=== PATIENT | male | born 1930 | race African-American/Black ===

== ENCOUNTER 2017-03-08 14:12 | Inpatient (IN) | payer MEDICARE ==
[~2017-03-08] VITALS: Ht 165.1 cm; Wt 57.0 kg
[2017-03-08 00:50] VITALS: BP 145/74
[~2017-03-08 14:12] MED LIST: ALBUTEROL SUL0.083 % IN; AMLODIPINE2.5 MG PO; ASA LOW DOSE81 MG OR; ATIVAN2 MG/M1 IM; ATROPINE 1% OPTH5 ML OS; ATROVENT HFA17 MCG IN; AUGMENTIN500TAB PO; B COMPLE1 OR; B COMPLE2 PO; BRIMONIDINE0.15 % OU; CIPRO500 MG OR; COSOPT1 ML OU; COUMADIN2 MG PO; COUMADIN2.5 MG PO; COUMADIN7.5 MG OR; DAPSONE100 MG OR; DAPSONE100 MG PO; DIPHENHYDRAM50 M2 PO; DULCOLAX10 MG RE; DUONEB IN; EFFEXOR37.5 MG PO; FOLIC ACID1 MG PO; HUMULIN R1 M1 SC; INSULIN LISPRO SC; INVANZ1 GM IV; IRON325 M1 PO; LANTISEPTI2 EX; LANTUS SC; LANTUS100 MG/ML SC; LEVETIRACETAM500 MG PO; LISINOPRIL20 MG PO; LORAZEPAM0.5 MG PO; LORTAB 1010 MG PO; MEROPENEM1 GM IJ; MEROPENEM1 GM IV; MILK OF MAG30 ML/UDC PO; MULTI VIT PO; NEURONTIN300 MG PO; NITRO-BID2.5 M1 PO; NORVASC2.5 MG PO; NOVOLIN R U-1001 ML SC; OLANZAPINE5 MG PO; OMEPRAZOLE20 MG PO; PERFOROMIST20 MCG IN; PRILOSEC20 MG/CAP PO; PRINIVIL20 MG OR; PRINIVIL5 MG OR; PROAIR HFA IN; SENNOSIDES8.6 M1 PO; SEPTRA PO; SEROQUEL100 MG PO; SEROQUEL25 MG PO; SIMBRINZA1 SUS OU; SPIRIVA HANDIHALER IN; SUSTIVA50 MG PO; SUSTIVA600 MG OR; SUSTIVA600 MG PO; THIAMINE HCL100 MG PO; TRUVADA OR; TRUVADA PO; TYLENOL325 MG PO; VITAMIN B-12500 MCG PO; WARFARIN1 MG PO; WARFARIN2.5 MG; WARFARIN2.5 MG OR; WARFARIN2.5 MG PO; XALATAN 0.005%2.5 ML OU; ZITHROMAX500 MG PO; ZYPREXA2.5 MG PO
[2017-03-08 14:53] VITALS: BP 119/63
[2017-03-08 20:02] VITALS: BP 162/84
[2017-03-08 21:23] LABS: CALCIUM 8.5 mg/dL (8.4-10.2); CREATININE 1.5 mg/dL (0.7-1.3); HEMATOCRIT 29.1 % (39.0-50.0); HEMOGLOBIN 9.3 g/dl (14.0-18.0); IMMATURE GRANULOCYTES 0.3 % (0.0-1.0); MEAN CELL VOLUME 97.7 fL CALC (80.0-100.0); MEAN CORPUSCULAR HGB 31.2 pG CALC (26.0-32.0); NEUT# 3.85 thou/uL (1.82-7.42); RED BLOOD COUNT 2.98 mill/uL (4.70-6.10); RED CELL DISTRI WIDTH 13.5 % (11.5-15.5)
[2017-03-08 21:28] LABS: POTASSIUM 5.3 mmol/l (3.5-5.1)
[2017-03-09 03:21] VITALS: BP 156/82
[2017-03-09 08:44] VITALS: BP 148/71
[2017-03-09 10:24] LABS: HEMATOCRIT 27.2 % (39.0-50.0); HEMOGLOBIN 8.6 g/dl (14.0-18.0); IMMATURE GRANULOCYTES 0.5 % (0.0-1.0); MEAN CELL VOLUME 97.5 fL CALC (80.0-100.0); MEAN CORPUSCULAR HGB 30.8 pG CALC (26.0-32.0); MEAN CORPUSCULAR HGB CONC 31.6 g/L CALC (32.0-36.0); NEUT# 3.28 thou/uL (1.82-7.42); RED BLOOD COUNT 2.79 mill/uL (4.70-6.10); RED CELL DISTRI WIDTH 13.4 % (11.5-15.5)
[2017-03-09 10:48] LABS: ALBUMIN 3.3 g/dL (3.2-5.0); ALKALINE PHOSPHATASE 154 u/l (38-126); BILIRUBIN, TOTAL 0.2 mg/dL (0.0-1.4); BUN 21 mg/dL (8-23); BUN/CREATININE RATIO 16 (12-20 (CALC)); CALCIUM 8.4 mg/dL (8.4-10.2); CARBON DIOXIDE 23 mmol/l (22-30); CHLORIDE 107 mmol/l (95-108); CREATININE 1.3 mg/dL (0.7-1.3); GFR 53 ML/MIN (>=60 (CALC)); GFR FOR AFR.AMER. > 60 ML/MIN (>=60 (CALC)); GLUCOSE 235 mg/dL (82-115); SGOT/AST 23 u/l (19-48); SGPT/ALT 35 u/l (11-66); SODIUM 140 mmol/l (137-146); TOTAL PROTEIN 7.8 g/dL (6.3-8.2)
[2017-03-09 10:51] LABS: ANION GAP 15 (6-22 (CALC)); POTASSIUM 5.4 mmol/l (3.5-5.1)
[2017-03-09 11:11] VITALS: BP 156/83
[2017-03-09 15:11] VITALS: BP 136/70
[2017-03-09 19:54] VITALS: BP 133/78
[2017-03-09 23:19] VITALS: BP 135/71
[2017-03-10 04:01] VITALS: BP 136/62
[2017-03-10 05:19] LABS: HEMATOCRIT 26.8 % (39.0-50.0); HEMOGLOBIN 8.6 g/dl (14.0-18.0); IMMATURE GRANULOCYTES 0.2 % (0.0-1.0); MEAN CELL VOLUME 96.8 fL CALC (80.0-100.0); MEAN CORPUSCULAR HGB CONC 32.1 g/L CALC (32.0-36.0); NEUT# 3.06 thou/uL (1.82-7.42); RED BLOOD COUNT 2.77 mill/uL (4.70-6.10); RED CELL DISTRI WIDTH 13.2 % (11.5-15.5)
[2017-03-10 05:42] LABS: ALBUMIN 3.1 g/dL (3.2-5.0); ALKALINE PHOSPHATASE 142 u/l (38-126); BILIRUBIN, TOTAL 0.2 mg/dL (0.0-1.4); BUN 20 mg/dL (8-23); BUN/CREATININE RATIO 15 (12-20 (CALC)); CALCIUM 8.2 mg/dL (8.4-10.2); CALCULATED LDLCHOLESTEROL 65 mg/dL (62-129 (CALC)); CARBON DIOXIDE 28 mmol/l (22-30); CHLORIDE 107 mmol/l (95-108); CREATININE 1.3 mg/dL (0.7-1.3); GFR 53 ML/MIN (>=60 (CALC)); GFR FOR AFR.AMER. > 60 ML/MIN (>=60 (CALC)); GLUCOSE 138 mg/dL (82-115); HDL CHOLESTEROL 36 mg/dL (>=40); SGOT/AST 27 u/l (19-48); SGPT/ALT 34 u/l (11-66); SODIUM 143 mmol/l (137-146); TOTAL CHOLESTEROL 131 mg/dl (0-199); TOTAL PROTEIN 7.4 g/dL (6.3-8.2); TOTAL TRIGLYCERIDES 149 mg/dl (30-149); VLDL CHOLESTROL 30 mg/dl (0-38 (CALC))
[2017-03-10 05:47] LABS: ANION GAP 14 (6-22 (CALC)); POTASSIUM 5.5 mmol/l (3.5-5.1)
[2017-03-10 09:28] VITALS: BP 176/89
[2017-03-10 11:11] VITALS: BP 158/86
[2017-03-10 15:25] VITALS: BP 154/81
[2017-03-10 19:35] VITALS: BP 120/70
[2017-03-11 00:40] VITALS: BP 157/80
[2017-03-11 05:00] VITALS: BP 130/84
[2017-03-11 05:23] LABS: HEMATOCRIT 27.6 % (39.0-50.0); HEMOGLOBIN 8.8 g/dl (14.0-18.0); IMMATURE GRANULOCYTES 0.6 % (0.0-1.0); MEAN CELL VOLUME 95.5 fL CALC (80.0-100.0); MEAN CORPUSCULAR HGB 30.4 pG CALC (26.0-32.0); MEAN CORPUSCULAR HGB CONC 31.9 g/L CALC (32.0-36.0); NEUT# 3.2 thou/uL (1.82-7.42); RED BLOOD COUNT 2.89 mill/uL (4.70-6.10)
[2017-03-11 05:47] LABS: CALCIUM 8.5 mg/dL (8.4-10.2); CREATININE 1.5 mg/dL (0.7-1.3)
[2017-03-11 05:56] LABS: POTASSIUM 5.2 mmol/l (3.5-5.1)
[2017-03-11 10:00] VITALS: BP 156/72
[2017-03-11 13:27] VITALS: BP 149/94
[2017-03-11 15:55] VITALS: BP 128/66
[2017-03-11 20:05] VITALS: BP 138/81
[2017-03-12 00:05] VITALS: BP 121/74
[2017-03-12 03:25] VITALS: BP 144/85
[2017-03-12] MEDS ORDERED: TRUVADA PO (09:21)
[2017-03-12] MEDS ORDERED: SUSTIVA600 MG PO (09:21)
[2017-03-12] MEDS ORDERED: ROCEPHIN 1 GM1 GM IM (09:23)
[2017-03-12 09:25] VITALS: BP 128/89
[2017-03-12 11:42] VITALS: BP 133/72
== END 2017-03-12 16:35 | DRG 190 ==
LOC: ENPENDDIS → MS2 14:12
PROVIDERS: ADMIT Internal Medicine Geriatric Medicine; ATTEND Internal Medicine Geriatric Medicine
DX: J44.0 Chronic obstructive pulmonary disease with (acute) lower respiratory infection (principal); J15.5 Pneumonia due to Escherichia coli; C79.9 Secondary malignant neoplasm of unspecified site; C80.1 Malignant (primary) neoplasm, unspecified; F03.90 Unspecified dementia, unspecified severity, without behavioral disturbance, psychotic disturbance, mood disturbance, and anxiety; E87.5 Hyperkalemia; E11.42 Type 2 diabetes mellitus with diabetic polyneuropathy; D63.8 Anemia in other chronic diseases classified elsewhere; I10 Essential (primary) hypertension; I25.10 Atherosclerotic heart disease of native coronary artery without angina pectoris; I48.91 Unspecified atrial fibrillation; H40.9 Unspecified glaucoma; H54.0 Blindness, both eyes; M19.90 Unspecified osteoarthritis, unspecified site; Z16.12 Extended spectrum beta lactamase (ESBL) resistance; Z21 Asymptomatic human immunodeficiency virus [HIV] infection status

== ENCOUNTER 2017-03-23 06:52 | Inpatient (IN) | payer MEDICARE ==
[~2017-03-23] VITALS: Ht 165.1 cm; Wt 60.0 kg
[~2017-03-23 06:52] MED LIST changes: +ROCEPHIN 1 GM1 GM IM
--- NOTE | 2017-03-23 06:52 | NUR ---
P TTO ROOM 10 VIA STRETCHER BY EMS. CALL LIGHT BEKAH FIERRO.
[2017-03-23 07:52] LABS: HEMATOCRIT 30.1 % (39.0-50.0); HEMOGLOBIN 9.6 g/dl (14.0-18.0); IMMATURE GRANULOCYTES 0.3 % (0.0-1.0); MEAN CORPUSCULAR HGB 31.6 pG CALC (26.0-32.0); MEAN CORPUSCULAR HGB CONC 31.9 g/L CALC (32.0-36.0); NEUT# 4.24 thou/uL (1.82-7.42); RED BLOOD COUNT 3.04 mill/uL (4.70-6.10); RED CELL DISTRI WIDTH 13.2 % (11.5-15.5)
[2017-03-23 08:07] LABS: ALBUMIN 3.6 g/dL (3.2-5.0); ALKALINE PHOSPHATASE 149 u/l (38-126); BILIRUBIN, TOTAL 0.3 mg/dL (0.0-1.4); BUN 29 mg/dL (8-23); BUN/CREATININE RATIO 19 (12-20 (CALC)); CALCIUM 8.6 mg/dL (8.4-10.2); CARBON DIOXIDE 27 mmol/l (22-30); CHLORIDE 108 mmol/l (95-108); CREATININE 1.5 mg/dL (0.7-1.3); GFR 45 ML/MIN (>=60 (CALC)); GFR FOR AFR.AMER. 54 ML/MIN (>=60 (CALC)); GLUCOSE 92 mg/dL (82-115); SGOT/AST 61 u/l (19-48); SGPT/ALT 33 u/l (11-66); SODIUM 144 mmol/l (137-146); TOTAL PROTEIN 8.9 g/dL (6.3-8.2)
--- NOTE | 2017-03-23 08:09 | NUR ---
PT RESTING ON STRETCHER WITH EYES CLOSED. PT RESPONDS TO VERBAL STIMULI. PT FOLLOWS COMMANDS. RESP EVEN AND UNLABORED. SKIN WARM AND DRY. CALL LIGHT WITHIN REACH. SR ON WASTE AND BATTING WASTE CHOPPER. PT VOICES NO COMPLAINTS OR CONCERNS.
[2017-03-23 08:11] LABS: INTERNATIONAL NORMALIZED RATIO 0.9 RATIO (0.7-1.3); PROTHROMBIN TIME 10.1 SECONDS (9.0-12.5)
[2017-03-23 08:18] LABS: MYOGLOBIN 62 ng/mL (0 - 121)
[2017-03-23 08:19] LABS: ANION GAP 15 (6-22 (CALC)); POTASSIUM 6.3 mmol/l (3.5-5.1)
[2017-03-23 08:58] LABS: URINE BILIRUBIN - DIPSTICK NEGATIVE (NEGATIVE); URINE BLOOD DIPSTICK NEGATIVE (NEGATIVE); URINE CLARITY CLEAR; URINE COLOR YELLOW; URINE GLUCOSE - DIPSTICK NEGATIVE (NEGATIVE); URINE KETONE NEGATIVE (NEGATIVE); URINE LEUK ESTERASE NEGATIVE (Negative); URINE NITRITE - DIPSTICK NEGATIVE (Negative); URINE PROTEIN - DIPSTICK NEGATIVE (NEG-TRACE); URINE UROBILINOGEN - DIPSTICK 0.2 E.U./dL (0.2)
--- NOTE | 2017-03-23 08:58 | NUR ---
SBAR PRINTED TO [id number] AT [id number].
--- NOTE | 2017-03-23 09:18 | NUR ---
PT SLEPING IN NO ACUTE DISTRESS, AWAKENS TO GENTLE TACTILE STIMULATION. NO VOICED CONCERNS AT THIS TIME. IVF BEGUN ORDERED, AWAITING ADMITTING ORDERS
[2017-03-23] MEDS ORDERED: DESCOVY 200-251 TAB PO (10:07)
[2017-03-23] MEDS ORDERED: GLIPIZIDE5 MG PO (10:11)
[2017-03-23] MEDS ORDERED: NITRO-DUR0.2 MG/HR TD (10:14)
[2017-03-23] MEDS ORDERED: AMLODIPINE BES2.5 MG PO (10:15)
[2017-03-23] MEDS ORDERED: (None)1 % OU (10:17)
[2017-03-23] MEDS ORDERED: XALATAN0.005 % OU (10:21)
[2017-03-23] MEDS ORDERED: [UNRECOGNIZED DRUG - OTHER] OS (10:25)
[2017-03-23] MEDS ORDERED: GABAPENTIN100 MG PO (10:26)
[2017-03-23] MEDS ORDERED: NOVOLIN R100 UNIT/M SC (10:32)
[2017-03-23] MEDS ORDERED: [UNRECOGNIZED DRUG - CODE] OS (10:33)
[2017-03-23] MEDS ORDERED: SYSTANE OU (10:34)
--- NOTE | 2017-03-23 10:36 | NUR ---
NO BRIDGE ORDERS PLACED OF YET. PT REMAINS IN STRETCHER IN ER AWAITING ROOM PLACEMENT.
--- NOTE | 2017-03-23 10:57 | NUR ---
PT REPORT GIVEN TO MED SURG
--- NOTE | 2017-03-23 11:00 | NUR ---
REPORT RECEIVED FROM JASVIR IN ED, PT ARRIVED ON UNIT ALERT AND ORIENTED X 3, TRANSFERRED FROM STRETCHER TO BED, ORIENTED TO ROOM AND CALL HARRIS, IVF INFUSING, NO C/O DISCOMFORT, CALL HARRIS IN REACH.
--- NOTE | 2017-03-23 11:12 | NUR ---
PT TAKEN TO FLOOR FOR ADMISSION
[2017-03-23 11:38] VITALS: BP 169/75
[2017-03-23 15:22] VITALS: BP 168/87
--- NOTE | 2017-03-23 16:00 | NUR ---
DR PAUL NOTIFIED OF PT BEING [facility]IN AT [facility], NO NEW ORDERS RECEIVED, WILL CONTINUE TO MONITOR.
[2017-03-23 19:10] VITALS: BP 165/79
--- NOTE | 2017-03-23 19:30 | NUR ---
PT. SITTING UP IN THE RECLINER NO DISTRESS NOTED. DENIES NEEDS. PO FLUIDS OFFERED. ASSESSMENT COMPLETED. BILATERAL LE ELEVATED. IV SITE PATENT TO LAC AND RECEIVING BOLUS. PT. INSTRUCTED TO CALL FOR ANY NEEDS. CALL LIGHT IS IN REACH. WILL CONTINUE TO MONITOR.
--- NOTE | 2017-03-23 21:28 | NUR ---
PT. C/O PAIN TO EYES AND KNEES, MEDICATED WITH ORDERED PRN LORTAB, WILL REASSESS. CALL LIGHT IS IN REACH.
[2017-03-24] VITALS (8 sets, daily range): BP systolic 95–171; BP diastolic 62–84
--- NOTE | 2017-03-24 00:15 | NUR ---
PT. RESTING IN BED WITH EYES CLOSED, NO DISTRESS NOTED. RESP EVEN AND UNLABORED. CALL LIGHT IS IN REACH. WILL CONTINUE TO MONITOR.
--- NOTE | 2017-03-24 04:18 | NUR ---
PT. CHECKED FOR INCONTINENCE, NONE NOTED. ARNOLDO CARE GIVEN AND NEW PADS PLACED UNDERNEATH. PT. REFUSES A BED BATH AT THIS TIME. WARM COMPRESS PLACED TO LEFT EYE FOR PAIN RELIEF. PO FLUIDS OFFERED. CALL LIGHT IS IN REACH.
[2017-03-24 04:49] LABS: HEMATOCRIT 28.5 % (39.0-50.0); HEMOGLOBIN 8.8 g/dl (14.0-18.0); IMMATURE GRANULOCYTES 0.2 % (0.0-1.0); MEAN CELL VOLUME 99.3 fL CALC (80.0-100.0); MEAN CORPUSCULAR HGB 30.7 pG CALC (26.0-32.0); MEAN CORPUSCULAR HGB CONC 30.9 g/L CALC (32.0-36.0); NEUT# 3.54 thou/uL (1.82-7.42); RED BLOOD COUNT 2.87 mill/uL (4.70-6.10); RED CELL DISTRI WIDTH 13.1 % (11.5-15.5)
[2017-03-24 05:06] LABS: ANION GAP 13 (6-22 (CALC)); BUN 21 mg/dL (8-23); BUN/CREATININE RATIO 18 (12-20 (CALC)); CALCIUM 8.2 mg/dL (8.4-10.2); CARBON DIOXIDE 25 mmol/l (22-30); CHLORIDE 109 mmol/l (95-108); CREATININE 1.1 mg/dL (0.7-1.3); GFR > 60 ML/MIN (>=60 (CALC)); GFR FOR AFR.AMER. > 60 ML/MIN (>=60 (CALC)); GLUCOSE 153 mg/dL (82-115); SODIUM 141 mmol/l (137-146)
[2017-03-24 05:16] LABS: POTASSIUM 5.9 mmol/l (3.5-5.1)
--- NOTE | 2017-03-24 06:52 | NUR ---
REPORT RECIEVED FROM TALI LEMON; PT RESTING IN BED WITH EYES CLOSED; NO S/S OF DISTRESS NOTED; PERRI ROMERO AT BEDSIDE; CALL LIGHT WITHIN REACH; WILL CONTINUE TO MONITOR
--- NOTE | 2017-03-24 12:00 | NUR ---
PT RESTING IN BED; NO S/S OF DISTRESS NOTED; IVF INFUSING AT PRESCRIBED RATE; FALL PRECAUTIONS IN PLACE; CALL LIGHT WITHIN REACH; WILL CONTINUE TO MONITOR
--- NOTE | 2017-03-24 16:00 | NUR ---
PT RESTING IN BED WITH EYES CLOSED; NO S/S OF DISTRESS NOTED; FALL PRECAUTIONS IN PLACE; CALL LIGHT WITHIN REACH; WILL CONTINUE TO MONITOR
--- NOTE | 2017-03-24 20:00 | NUR ---
PT. RESTING IN BED WITH NO DISTRESS NOTED. DENIES NEEDS/PAIN. ASSESSMENT COMPLETED. IV SITE PATENT TO LAC AND INFUSING ORDERED NS @80MLS/HR. PT HAS SLIGHT SWELLING NOTED TO LEFT EYE, WILL CONTINUE TO MONITOR. CALL LIGHT IS IN REACH.
--- NOTE | 2017-03-24 23:30 | NUR ---
PT. RESTING IN BED WITH NO DISTRESS NOTED. DENIES NEEDS. ENCOURAGED TO CALL FOR ANY NEEDS. CALL LIGHT IS IN REACH.
[2017-03-25 04:41] VITALS: BP 133/66
--- NOTE | 2017-03-25 04:43 | NUR ---
PT. SLEEPING, AWAKENED FOR AM VS; VSS; NO DISTRESS NOTED. DENIES NEEDS. CALL LIGHT IS IN REACH.
[2017-03-25 05:29] LABS: HEMATOCRIT 26.2 % (39.0-50.0); HEMOGLOBIN 8.5 g/dl (14.0-18.0); IMMATURE GRANULOCYTES 0.4 % (0.0-1.0); MEAN CORPUSCULAR HGB 31.5 pG CALC (26.0-32.0); MEAN CORPUSCULAR HGB CONC 32.4 g/L CALC (32.0-36.0); NEUT# 3.01 thou/uL (1.82-7.42); RED BLOOD COUNT 2.7 mill/uL (4.70-6.10); RED CELL DISTRI WIDTH 12.8 % (11.5-15.5)
--- NOTE | 2017-03-25 05:30 | NUR ---
PT. RECEIVED A CBB AND LINENS CHANGED. PO FLUIDS OFFERED. PT. DENIES FURTHER NEEDS. CALL LIGHT IS IN REACH. WILL CONTINUE TO MONTIOR.
[2017-03-25 05:31] LABS: ANION GAP 11 (6-22 (CALC)); BUN 18 mg/dL (8-23); BUN/CREATININE RATIO 15 (12-20 (CALC)); CALCIUM 8.4 mg/dL (8.4-10.2); CARBON DIOXIDE 26 mmol/l (22-30); CHLORIDE 110 mmol/l (95-108); CREATININE 1.2 mg/dL (0.7-1.3); GFR 58 ML/MIN (>=60 (CALC)); GFR FOR AFR.AMER. > 60 ML/MIN (>=60 (CALC)); GLUCOSE 90 mg/dL (82-115); SODIUM 142 mmol/l (137-146)
--- NOTE | 2017-03-25 07:14 | NUR ---
BEDSIDE REPORT RECEIVED FROM TALI LEMON. PT SLEEPING AT THIS TIME. CALL LIGHT WITHIN REACH. WILL CONTINUE TO MONITOR.
[2017-03-25 08:05] VITALS: BP 165/86
[2017-03-25 11:18] VITALS: BP 141/74
--- NOTE | 2017-03-25 12:30 | NUR ---
PT ASSISTED TO BSC WITH 1 STAFF ASSIST. LARGE BM. PT ASSISTED WITH HYGIENE AND ASSISTED BACK TO BED. WILL CONTINUE TO MONITOR.
--- NOTE | 2017-03-25 14:00 | NUR ---
DR. LANGFORD IN TO SEE PT. PLAN OF DISCHARGE BACK TO [facility] DISCUSSED. PT STATES UNDERSTANDING.
[2017-03-25 16:45] VITALS: BP 156/76
--- NOTE | 2017-03-25 18:15 | NUR ---
Discharge instructions given. Patient verbalizes understanding of same. Discharged in stable condition [facility]. All belongings sent with pt.
== END 2017-03-25 18:15 | DRG 641 ==
LOC: ENPENDDIS → ED 06:52 → ED-I 07:37 → ED 08:49 → MS2 08:50
PROVIDERS: Emergency Medicine; ADMIT Internal Medicine; ATTEND Internal Medicine
DX: E87.5 Hyperkalemia (principal); C79.9 Secondary malignant neoplasm of unspecified site; F03.90 Unspecified dementia, unspecified severity, without behavioral disturbance, psychotic disturbance, mood disturbance, and anxiety; E11.22 Type 2 diabetes mellitus with diabetic chronic kidney disease; N18.3 Chronic kidney disease, stage 3 (moderate); C80.1 Malignant (primary) neoplasm, unspecified; I12.9 Hypertensive chronic kidney disease with stage 1 through stage 4 chronic kidney disease, or unspecified chronic kidney disease; D63.8 Anemia in other chronic diseases classified elsewhere; T46.4X5A Adverse effect of angiotensin-converting-enzyme inhibitors, initial encounter; E11.42 Type 2 diabetes mellitus with diabetic polyneuropathy; E78.5 Hyperlipidemia, unspecified; I25.10 Atherosclerotic heart disease of native coronary artery without angina pectoris; H54.0 Blindness, both eyes; J44.9 Chronic obstructive pulmonary disease, unspecified
CPT/HCPCS: G0378

== ENCOUNTER 2017-05-01 14:02 | Inpatient (IN) | payer MEDICARE ==
[~2017-05-01] VITALS: Ht 165.1 cm; Wt 59.6 kg
[~2017-05-01 14:02] MED LIST changes: +(None)1 % OU; +AMLODIPINE BES2.5 MG PO; +DESCOVY 200-251 TAB PO; +GABAPENTIN100 MG PO; +GLIPIZIDE5 MG PO; +NITRO-DUR0.2 MG/HR TD; +NOVOLIN R100 UNIT/M SC; +SYSTANE OU; +XALATAN0.005 % OU; +[UNRECOGNIZED DRUG - CODE] OS; +[UNRECOGNIZED DRUG - OTHER] OS
[2017-05-01 16:27] LABS: HEMATOCRIT 27.5 % (39.0-50.0); IMMATURE GRANULOCYTES 0.3 % (0.0-1.0); MEAN CELL VOLUME 95.2 fL CALC (80.0-100.0); MEAN CORPUSCULAR HGB 31.1 pG CALC (26.0-32.0); MEAN CORPUSCULAR HGB CONC 32.7 g/L CALC (32.0-36.0); NEUT# 4.59 thou/uL (1.82-7.42); RED BLOOD COUNT 2.89 mill/uL (4.70-6.10); RED CELL DISTRI WIDTH 12.2 % (11.5-15.5)
[2017-05-01 16:36] LABS: ALBUMIN 3.8 g/dL (3.2-5.0); ALKALINE PHOSPHATASE 129 u/l (38-126); BILIRUBIN, TOTAL 0.2 mg/dL (0.0-1.4); BUN 28 mg/dL (8-23); BUN/CREATININE RATIO 19 (12-20 (CALC)); CALCIUM 8.8 mg/dL (8.4-10.2); CARBON DIOXIDE 25 mmol/l (22-30); CHLORIDE 109 mmol/l (95-108); CREATININE 1.4 mg/dL (0.7-1.3); GFR 48 ML/MIN (>=60 (CALC)); GFR FOR AFR.AMER. 58 ML/MIN (>=60 (CALC)); GLUCOSE 86 mg/dL (82-115); SGOT/AST 37 u/l (19-48); SGPT/ALT 21 u/l (11-66); SODIUM 141 mmol/l (137-146); TOTAL PROTEIN 8.5 g/dL (6.3-8.2)
[2017-05-01 16:47] LABS: ANION GAP 13 (6-22 (CALC)); POTASSIUM 6.2 mmol/l (3.5-5.1)
[2017-05-01 16:48] LABS: MYOGLOBIN 49 ng/mL (0 - 121)
[2017-05-01 18:29] LABS: URINE BILIRUBIN - DIPSTICK NEGATIVE (NEGATIVE); URINE BLOOD DIPSTICK NEGATIVE (NEGATIVE); URINE CLARITY CLEAR; URINE COLOR YELLOW; URINE GLUCOSE - DIPSTICK NEGATIVE (NEGATIVE); URINE KETONE NEGATIVE (NEGATIVE); URINE LEUK ESTERASE NEGATIVE (NEGATIVE); URINE NITRITE - DIPSTICK NEGATIVE (Negative); URINE PROTEIN - DIPSTICK TRACE mg/dL (NEG-TRACE); URINE SPECIFIC GRAVITY 1.015; URINE UROBILINOGEN - DIPSTICK 0.2 E.U./dL (0.2)
[2017-05-01 19:23] VITALS: BP 156/78
[2017-05-02] VITALS (7 sets, daily range): BP systolic 146–195; BP diastolic 77–97
[2017-05-02 05:55] LABS: ALBUMIN 3.7 g/dL (3.2-5.0); ALKALINE PHOSPHATASE 127 u/l (38-126); ANION GAP 15 (6-22 (CALC)); BILIRUBIN, TOTAL 0.3 mg/dL (0.0-1.4); BUN 26 mg/dL (8-23); BUN/CREATININE RATIO 21 (12-20 (CALC)); CALCIUM 8.6 mg/dL (8.4-10.2); CARBON DIOXIDE 25 mmol/l (22-30); CHLORIDE 108 mmol/l (95-108); CREATININE 1.2 mg/dL (0.7-1.3); GFR 58 ML/MIN (>=60 (CALC)); GFR FOR AFR.AMER. > 60 ML/MIN (>=60 (CALC)); GLUCOSE 122 mg/dL (82-115); SGOT/AST 28 u/l (19-48); SGPT/ALT 30 u/l (11-66); SODIUM 142 mmol/l (137-146); TOTAL PROTEIN 8.2 g/dL (6.3-8.2)
[2017-05-02 05:59] LABS: HEMATOCRIT 28.6 % (39.0-50.0); HEMOGLOBIN 9.2 g/dl (14.0-18.0); IMMATURE GRANULOCYTES 0.2 % (0.0-1.0); MEAN CELL VOLUME 95.3 fL CALC (80.0-100.0); MEAN CORPUSCULAR HGB 30.7 pG CALC (26.0-32.0); MEAN CORPUSCULAR HGB CONC 32.2 g/L CALC (32.0-36.0); NEUT# 3.02 thou/uL (1.82-7.42); RED CELL DISTRI WIDTH 12.1 % (11.5-15.5)
[2017-05-02 06:04] LABS: POTASSIUM 6.2 mmol/l (3.5-5.1)
[2017-05-02 11:19] LABS: ANION GAP 16 (6-22 (CALC)); BUN 23 mg/dL (8-23); BUN/CREATININE RATIO 19 (12-20 (CALC)); CALCIUM 8.7 mg/dL (8.4-10.2); CARBON DIOXIDE 27 mmol/l (22-30); CHLORIDE 104 mmol/l (95-108); CREATININE 1.2 mg/dL (0.7-1.3); GFR 58 ML/MIN (>=60 (CALC)); GFR FOR AFR.AMER. > 60 ML/MIN (>=60 (CALC)); GLUCOSE 191 mg/dL (82-115); POTASSIUM 5.5 mmol/l (3.5-5.1); SODIUM 141 mmol/l (137-146)
[2017-05-03] VITALS (13 sets, daily range): BP systolic 127–164; BP diastolic 48–80
[2017-05-03 07:21] LABS: HEMATOCRIT 25.5 % (39.0-50.0); HEMOGLOBIN 8.2 g/dl (14.0-18.0); IMMATURE GRANULOCYTES 0.2 % (0.0-1.0); MEAN CELL VOLUME 94.8 fL CALC (80.0-100.0); MEAN CORPUSCULAR HGB 30.5 pG CALC (26.0-32.0); MEAN CORPUSCULAR HGB CONC 32.2 g/L CALC (32.0-36.0); NEUT# 2.88 thou/uL (1.82-7.42); RED BLOOD COUNT 2.69 mill/uL (4.70-6.10); RED CELL DISTRI WIDTH 12.1 % (11.5-15.5)
[2017-05-03 07:45] LABS: ALBUMIN 3.2 g/dL (3.2-5.0); ALKALINE PHOSPHATASE 107 u/l (38-126); ANION GAP 12 (6-22 (CALC)); BILIRUBIN, TOTAL 0.1 mg/dL (0.0-1.4); BUN 22 mg/dL (8-23); BUN/CREATININE RATIO 21 (12-20 (CALC)); CARBON DIOXIDE 25 mmol/l (22-30); CHLORIDE 107 mmol/l (95-108); CREATININE 1.1 mg/dL (0.7-1.3); GFR > 60 ML/MIN (>=60 (CALC)); GFR FOR AFR.AMER. > 60 ML/MIN (>=60 (CALC)); GLUCOSE 222 mg/dL (82-115); SGOT/AST 27 u/l (19-48); SGPT/ALT 30 u/l (11-66); SODIUM 139 mmol/l (137-146); TOTAL PROTEIN 7.2 g/dL (6.3-8.2)
[2017-05-04 04:12] VITALS: BP 133/70
[2017-05-04 07:19] VITALS: BP 139/79
[2017-05-04 09:12] LABS: HEMATOCRIT 35.3 % (39.0-50.0); HEMOGLOBIN 11.8 g/dl (14.0-18.0); IMMATURE GRANULOCYTES 0.2 % (0.0-1.0); MEAN CELL VOLUME 92.4 fL CALC (80.0-100.0); MEAN CORPUSCULAR HGB 30.9 pG CALC (26.0-32.0); MEAN CORPUSCULAR HGB CONC 33.4 g/L CALC (32.0-36.0); NEUT# 4.12 thou/uL (1.82-7.42); RED BLOOD COUNT 3.82 mill/uL (4.70-6.10); RED CELL DISTRI WIDTH 13.3 % (11.5-15.5)
[2017-05-04 09:38] LABS: ANION GAP 15 (6-22 (CALC)); BUN 22 mg/dL (8-23); BUN/CREATININE RATIO 21 (12-20 (CALC)); CALCIUM 8.6 mg/dL (8.4-10.2); CARBON DIOXIDE 24 mmol/l (22-30); CHLORIDE 108 mmol/l (95-108); CREATININE 1.1 mg/dL (0.7-1.3); GFR > 60 ML/MIN (>=60 (CALC)); GFR FOR AFR.AMER. > 60 ML/MIN (>=60 (CALC)); GLUCOSE 152 mg/dL (82-115); POTASSIUM 4.8 mmol/l (3.5-5.1); SODIUM 141 mmol/l (137-146)
[2017-05-04 11:09] VITALS: BP 165/87
[2017-05-04 15:22] VITALS: BP 148/78
[2017-05-04 19:05] VITALS: BP 157/80
[2017-05-04 23:25] VITALS: BP 134/76
[2017-05-05 04:00] VITALS: BP 163/79
[2017-05-05 05:15] LABS: ALBUMIN 3.6 g/dL (3.2-5.0); ALKALINE PHOSPHATASE 122 u/l (38-126); ANION GAP 14 (6-22 (CALC)); BILIRUBIN, TOTAL 0.2 mg/dL (0.0-1.4); BUN 25 mg/dL (8-23); BUN/CREATININE RATIO 21 (12-20 (CALC)); CALCIUM 8.9 mg/dL (8.4-10.2); CARBON DIOXIDE 26 mmol/l (22-30); CHLORIDE 108 mmol/l (95-108); CREATININE 1.2 mg/dL (0.7-1.3); GFR 58 ML/MIN (>=60 (CALC)); GFR FOR AFR.AMER. > 60 ML/MIN (>=60 (CALC)); GLUCOSE 102 mg/dL (82-115); POTASSIUM 4.8 mmol/l (3.5-5.1); SGOT/AST 23 u/l (19-48); SGPT/ALT 27 u/l (11-66); SODIUM 144 mmol/l (137-146); TOTAL PROTEIN 8.1 g/dL (6.3-8.2)
[2017-05-05 08:36] VITALS: BP 176/89
[2017-05-05 11:14] VITALS: BP 185/80
== END 2017-05-05 12:50 | DRG 640 ==
LOC: ENPENDDIS → ED 14:02 → ED-I 17:19 → ED 17:39 → MS2 17:40
PROVIDERS: Emergency Medicine; ADMIT Internal Medicine Geriatric Medicine; ATTEND Internal Medicine Geriatric Medicine
PROC: 30233N1 Transfusion of Nonautologous Red Blood Cells into Peripheral Vein, Percutaneous Approach (ICD-10-PCS; principal; 2017-05-03)
PROC: 30233N1 Transfusion of Nonautologous Red Blood Cells into Peripheral Vein, Percutaneous Approach (ICD-10-PCS; 2017-05-03)
DX: E87.5 Hyperkalemia (principal); K57.51 Diverticulosis of both small and large intestine without perforation or abscess with bleeding; C90.00 Multiple myeloma not having achieved remission; I13.0 Hypertensive heart and chronic kidney disease with heart failure and stage 1 through stage 4 chronic kidney disease, or unspecified chronic kidney disease; I50.32 Chronic diastolic (congestive) heart failure; F03.90 Unspecified dementia, unspecified severity, without behavioral disturbance, psychotic disturbance, mood disturbance, and anxiety; I25.110 Atherosclerotic heart disease of native coronary artery with unstable angina pectoris; D63.8 Anemia in other chronic diseases classified elsewhere; E11.22 Type 2 diabetes mellitus with diabetic chronic kidney disease; N18.9 Chronic kidney disease, unspecified; J44.9 Chronic obstructive pulmonary disease, unspecified; H40.9 Unspecified glaucoma; H54.0 Blindness, both eyes; K27.9 Peptic ulcer, site unspecified, unspecified as acute or chronic, without hemorrhage or perforation; M19.90 Unspecified osteoarthritis, unspecified site; G89.29 Other chronic pain; M54.5 Low back pain; E11.42 Type 2 diabetes mellitus with diabetic polyneuropathy; Z66 Do not resuscitate; Z21 Asymptomatic human immunodeficiency virus [HIV] infection status
CPT/HCPCS: G0378; P9016

== ENCOUNTER 2018-06-26 12:11 | Inpatient (IN) | payer MEDICARE, MEDICAID ==
[~2018-06-26] VITALS: Ht 165.1 cm; Wt 57.0 kg
--- NOTE | 2018-06-26 12:11 | NUR ---
PATIENT ARRIVES TO ROOM VIA EMS, RESPONDS TO VERBAL AND TACTILE STIMULI. ALERT AND ORIENTED ONLY TO SELF.
[2018-06-26 12:47] LABS: BASO% 0 % (0-3); EOS% 0 % (0-8); IMMATURE GRANULOCYTES 1.7 % (0.0-5.0); MEAN CELL VOLUME 94.9 fL CALC (80.0-100.0); MEAN CORPUSCULAR HGB 29.3 pG CALC (26.0-32.0); MEAN CORPUSCULAR HGB CONC 30.8 g/L CALC (32.0-36.0); NEUT# 8.58 thou/uL (1.82-7.42); RED BLOOD COUNT 2.94 mill/uL (4.70-6.10); RED CELL DISTRI WIDTH 13.1 % (11.5-15.5)
--- NOTE | 2018-06-26 12:50 | NUR ---
FAMILY AT BEDSIDE, PATIENT RESPONDS TO VERBAL STIMULI. ALERT AND ORIENTED TO SELF. HAS PRODUCTIVE COUGH WITH CRACKES TO LEFT LUNG, CLEAR RIGHT LUNG SOUNDS. 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 PATIENT ON O2 AT [facility] AT 2L/MIN. WILL CONTINUE TO MONITOR.
--- NOTE | 2018-06-26 12:55 | NUR ---
RT AT BEDSIDE TO PLACE PATIENT ON BIPAP.
[2018-06-26 13:11] LABS: PROTHROMBIN TIME 11.4 SECONDS (9.0-12.5)
[2018-06-26 13:14] LABS: MANUAL DIFFERENTIAL YES
[2018-06-26 13:15] LABS: BAND 10 % (0-8); HEMATOCRIT 27.9 % (39.0-50.0); HEMOGLOBIN 8.6 g/dl (14.0-18.0); PLATELET COUNT 338 thou/uL (130-400)
[2018-06-26 13:19] LABS: ALBUMIN 3.2 g/dL (3.2-5.0); ALKALINE PHOSPHATASE 124 u/l (38-126); BILIRUBIN, TOTAL 0.4 mg/dL (0.0-1.4); BUN 37 mg/dL (8-23); BUN/CREATININE RATIO 24 (12-20 (CALC)); CARBON DIOXIDE 21 mmol/l (22-30); CHLORIDE 109 mmol/l (95-108); CREATININE 1.5 mg/dL (0.7-1.3); GFR 44 ML/MIN (>=60 (CALC)); GFR FOR AFR.AMER. 54 ML/MIN (>=60 (CALC)); LIPASE 14 u/l (23-300); SGOT/AST 18 u/l (19-48); SGPT/ALT 26 u/l (11-66); SODIUM 145 mmol/l (137-146); TOTAL PROTEIN 7.4 g/dL (6.3-8.2)
[2018-06-26 13:22] LABS: ANION GAP 20 (6-22 (CALC)); POTASSIUM 5.4 mmol/l (3.5-5.1)
--- NOTE | 2018-06-26 13:44 | NUR ---
PATIENT RETURNS FROM CT SCAN IN STABLE CONDITION. BIPAP SETTING SET BY RT, IPAP 16 CMH2O EPAP 5 CMH20 RATE 18 BREATHS PER MIN O2 35%
[2018-06-26] MEDS ORDERED: ACETAMINOPHEN325 MG PO (13:53)
[2018-06-26] MEDS ORDERED: ZITHROMAX250 MG PO (13:54)
[2018-06-26] MEDS ORDERED: DULCOLAX10 MG RE (13:55)
[2018-06-26] MEDS ORDERED: B COMPLE2 PO (13:55)
[2018-06-26] MEDS ORDERED: FERR SULFATE325 MG PO (13:56)
[2018-06-26] MEDS ORDERED: NEURONTIN300 MG PO (13:57)
[2018-06-26] MEDS ORDERED: GERI HYDROLA EX (13:58)
[2018-06-26] MEDS ORDERED: GERI-TUSSI100 MG/5 M PO (14:00)
[2018-06-26] MEDS ORDERED: GLIPIZIDE5 MG PO (14:00)
[2018-06-26] MEDS ORDERED: LEVETIRACETAM500 M1 PO (14:01)
[2018-06-26] MEDS ORDERED: ATIVAN1 M1 PO (14:02)
[2018-06-26] MEDS ORDERED: MEGESTROL AC20 MG PO (14:02)
[2018-06-26] MEDS ORDERED: MILK OF MAG30 ML/UDC PO (14:03)
[2018-06-26] MEDS ORDERED: MULTIVITAMI1 PO (14:03)
[2018-06-26] MEDS ORDERED: AMLODIPINE BESYL5 MG PO (14:04)
[2018-06-26] MEDS ORDERED: NITRO-DUR0.2 MG/HR TD (14:04)
[2018-06-26] MEDS ORDERED: NOVOLIN R100 UNIT/M (14:10)
[2018-06-26] MEDS ORDERED: OLANZAPINE5 MG PO (14:11)
[2018-06-26] MEDS ORDERED: OMEPRAZOLE10 MG PO (14:12)
--- NOTE | 2018-06-26 14:20 | NUR ---
PATIENT RESTING ON STRETCHER WITH BIPAP IN PLACE. TOLERATING WELL. DAUGHTER UPDATED ON WAIT TIME AND PLAN OF CARE. VERBAL UNDERSTANDING. WILL CONTINUE TO MONITOR.
[2018-06-26] MEDS ORDERED: ONDANSETRON HCL4 MG PO (14:22)
[2018-06-26] MEDS ORDERED: SIMBRINZA1 SUS OU (14:23)
[2018-06-26] MEDS ORDERED: LUBRICANT EYE D OU (14:24)
[2018-06-26] MEDS ORDERED: TRAMADOL HCL50 MG PO (14:25)
[2018-06-26] MEDS ORDERED: VENLAFAXINE H37.5 MG PO (14:26)
[2018-06-26] MEDS ORDERED: XALATAN 0.005%2.5 ML OU (14:26)
--- NOTE | 2018-06-26 14:27 | NUR ---
MEDREC COMPLETED WITH MED REC SENT OVER BY [facility].
--- NOTE | 2018-06-26 14:40 | NUR ---
RT AT BEDSIDE TO DRAW SECOND ABG.
--- NOTE | 2018-06-26 15:00 | NUR ---
PATIENT CLEANED OF SMALL URINARY INCONTINENCE AND SMALL BM. PATIENT TOLERATED WELL. CHANGES MADE TO BIPAP SETTINGS BY RT IPAP 18 CMH20 EPAP 8 CMH20 O2 35%
--- NOTE | 2018-06-26 15:31 | NUR ---
AT BEDSIDE TO DISCUSS ADMIT PLANS WITH FAMILY.
--- NOTE | 2018-06-26 15:35 | NUR ---
REPORT CALLED TO TALI ROSAS.
--- NOTE | 2018-06-26 16:01 | NUR ---
PT AWARE OF PENDING DISCHARGE TO HOME LATER TODAY, AWAITS DISPOSITION. NO CHANGE NOTED IN PT STATUS. DAUGHTER REMAINS AT BEDSIDE.
--- NOTE | 2018-06-26 16:10 | NUR ---
PATIENT TRANSPORTED TO ICU VIA STERTCHER WITH [employer]OD SPECIALTY COOK AND BIPAP IN PLACE. RT AT ASSIST WITH TRANSPORT. RALPH RN UPDATED ON MEDICATIONS GIVEN AND TO CONTINUE INFUSING IN ICU. CARE RELINQUISHED.
[2018-06-26 17:00] VITALS: BP 134/74
--- NOTE | 2018-06-26 17:23 | NUR ---
PT ARRIVES TO FLOOR VIA STRETCHER WITH BIPAP IN PLACE. PT DOES ANSWER QUESTIONS WITH ONE WORD ANSWERS AT TIMES. DAUGHTER AND GRANDDAUGHTER AT BEDSIDE. PT WITHOUT SKIN BREAKDOWN ISSUES.
--- NOTE | 2018-06-26 19:30 | NUR ---
PT IN BED WITH EYES CLOSED, WEARING BIPAP AT 28% HUMIDIFIED, LUNG SOUNDS CLEAR WITH DIMINISHED BASES. OPENS EYES ON COMMAND, IS NON VERBAL AT THIS TIME, MOANS WHEN ASKED HIS NAME AND . HAND AGILE TESTER MODERATE, FOLLOWS COMMAND WHEN ASKED TO OPEN EYES AND YARD SWITCH OPERATOR THIS WRITTERS HANDS. DOES NOT MOVE LOWER EXTREMITIES ON COMMAND OR INDEPENDENTLY AT THIS TIME. POSITIONED TO LEFT SIDE. WILL CONTINUE TO MONITOR.
[2018-06-26 19:50] VITALS: BP 151/85
--- NOTE | 2018-06-26 21:36 | NUR ---
ACCUCHECK 373, SS CALLS FOR 8 UNITS, PT IS UNABLE TO TAKE PO SNACK. DR. HERNANDEZ NOTIFIED AND ORDER RECEIVED TO ONLY GIVE 5UNITS OF NOVULOG SQ. D51/2NS INFUSING TO RH AT 100CC/HR.
[2018-06-26 22:00] VITALS: BP 111/57
--- NOTE | 2018-06-26 23:00 | NUR ---
RESTING WITH EYES CLOSED, RESPIRATION EVEN AND UNLABORED ON BIPAP. REPOSITIONED TO RIGHT SIDE AT THIS TIME.
[2018-06-27] VITALS (18 sets, daily range): BP systolic 94–150; BP diastolic 47–77
--- NOTE | 2018-06-27 01:00 | NUR ---
REPOSITIONED TO SEMIFOWLERS, RESPIRATIONS EVEN AND UNLABORED ON BIPAP FIO2 28%, O2 SAT 97%. D51/2NS INFUSING TO RH AT 100CC/HR. CALL LIGHT IN REACH.
--- NOTE | 2018-06-27 02:49 | NUR ---
PT VERY ANXIOUS PULLING OFF BIPAP MASK, AND STATING "GET THIS OFF ME", ENCOURAGED PT TO KEEP BIPAP IN PLACE WITH NO SUCCESS, XANAX 1MG IV ADMINISTERED PER MAR. O2 @2L VIA NC APPLIED O2 SAT 95%. VOIDING 300ML CLEAR YELLOW URINE INTO URINAL. BED ALARM IN PLACE, WILL CONTINUE TO MONITOR.
--- NOTE | 2018-06-27 03:00 | NUR ---
RESTING WITH EYES CLOSED, RESPIRATIONS EVEN AND UNLABORED ON O2 @2L VIA NC, O2 SAT 98%
[2018-06-27 03:11] LABS: URINE BILIRUBIN - DIPSTICK NEGATIVE (NEGATIVE); URINE BLOOD DIPSTICK SMALL (NEGATIVE); URINE COLOR YELLOW; URINE GLUCOSE - DIPSTICK 250 mg/dL (NEGATIVE); URINE KETONE 15 mg/dL (NEGATIVE); URINE LEUK ESTERASE NEGATIVE (NEGATIVE); URINE NITRITE - DIPSTICK NEGATIVE (Negative); URINE PH 5.5 (4.5-8.0); URINE PROTEIN - DIPSTICK 100 mg/dL (NEG-TRACE); URINE SPECIFIC GRAVITY 1.025; URINE UROBILINOGEN - DIPSTICK 0.2 E.U./dL (0.2)
[2018-06-27 03:14] LABS: URINE CLARITY SL CLOUDY
[2018-06-27 03:22] LABS: URINE BACTERIA FEW hpf; URINE FINE GRAN CAST FEW lpf; URINE MUCUS FEW hpf (NONE-FEW); URINE SQUAMOUS EPITHELIAL CELL MODERATE EPI/hpf (0-FEW)
--- NOTE | 2018-06-27 04:30 | NUR ---
MORNING LABS DRAWN BY AMERICAN HISTORY TEACHER AT THIS TIME, TOLERATED WELL. O2 @2L VIA NC, IN PLACE O2 SAT 99%.
--- NOTE | 2018-06-27 05:00 | NUR ---
RADIOLOGY AT BED SIDE, TAKING 1V CHEST XRAY.
[2018-06-27 05:06] LABS: BASO% 0 % (0-3); EOS% 0 % (0-8); HEMATOCRIT 30.3 % (39.0-50.0); HEMOGLOBIN 9.5 g/dl (14.0-18.0); LYMPH% 7 % (15-41); MEAN CELL VOLUME 93.5 fL CALC (80.0-100.0); MEAN CORPUSCULAR HGB 29.3 pG CALC (26.0-32.0); MEAN CORPUSCULAR HGB CONC 31.4 g/L CALC (32.0-36.0); MONO% 1 % (2-13); NEUT# 7.26 thou/uL (1.82-7.42); PLATELET COUNT 355 thou/uL (130-400); RED BLOOD COUNT 3.24 mill/uL (4.70-6.10); RED CELL DISTRI WIDTH 12.8 % (11.5-15.5)
[2018-06-27 05:12] LABS: ALBUMIN 3.5 g/dL (3.2-5.0); BILIRUBIN, TOTAL 0.4 mg/dL (0.0-1.4); CREATININE 1.6 mg/dL (0.7-1.3); POTASSIUM 5.1 mmol/l (3.5-5.1); TOTAL PROTEIN 8.2 g/dL (6.3-8.2)
[2018-06-27 05:39] LABS: MANUAL DIFFERENTIAL YES; NEUT% 100 % (42-76)
--- NOTE | 2018-06-27 05:40 | NUR ---
NOTIFIED OF GLUCOSE 542, NEW ORDER RECEIVED TO DC D51/2NS AND START ON NS AT 100CC/HR AND 10UNITS OF REGULAR INSULIN.
[2018-06-27 05:41] LABS: BAND 2 % (0-8)
--- NOTE | 2018-06-27 07:46 | NUR ---
PT SEEN SLEEPY BUT AROUSABLE IN BED. PT WITH CRITICAL HIGH BLOOD GLUCOSE THIS AM, LAB HAS DRAWN BLOOD, DR HERNANDEZ AWARE. LUNGS CLEAR, NOW USING NC AT 2 LPM, SATS AROUND 96%. PT DENIES SHORTNESS OF BREATH. CONDOM CATHETER PLACED TO AVOID INCONTINENCE IN BED. SMALL BM CLEANED BY PREVIOUS SHIFT.
--- NOTE | 2018-06-27 12:30 | NUR ---
PT HAS HAD DAUGHTER AND GRANDDAUGHTER AT BEDSIDE VISITING, HAS CONSUMED 360 ML PO. PT IS FED BY FAMILY. NO CHOKING NOTED.
--- NOTE | 2018-06-27 16:47 | NUR ---
PT CONTINUES BEFORE, RESTING IN THE BED IN NO DISTRESS. IV SITE CHANGED OUT PER EMS STICK. PT HAS BEEN USING THE CONDOM CATHETER APPROPRIATELY, NO LEAKING, OUTPUT SEEN IN DRAINAGE BAG.
--- NOTE | 2018-06-27 18:45 | NUR ---
REPORT FROM TALI ROSAS. ASSUMED PT. CARE.
--- NOTE | 2018-06-27 19:35 | NUR ---
PT. FOUND RESTING IN BED IN NO DISTRESS. RESPS EVEN AND UNLABORED. SKIN WARM AND DRY. PULSES INTACT, PRESENT, WEAK DORSALIS PEDAL. NO EDEMA NOTED. BOWEL SOUNDS PRESENT IN ALL 4 QUADS. LT. UPPER LUNG COARSE, LT BASE DIMINISED. RT. SIDE LUNG SOUNDS ARE CLEAR. S1.S2, REGULAR RATE AND RHYTHM. SINUS-SINUS TACH 90-110'S. PT. DENIES COMPLAINTS OF PAIN AT THIS TIME.
--- NOTE | 2018-06-27 20:35 | NUR ---
PT. STATES HE BELIEVES SOMEONE HAS TAKEN HIS WATCH. INVENTORY LIST REVIEWED AND PT. DID NOT HAVE WATCH ON ARRIVAL. WILL CONTACT FAMILY. PT. REMAINS STABLE IN NO DISTRESS. IV ZITHROMAX INFUSING WITHOUT SX OF INFILTRATION OR REACTION. ACCUCHECK NOW 361. WILL MEDICATE ORDERED.
--- NOTE | 2018-06-27 21:15 | NUR ---
ZITHROMAX INFUSED. NO REACTIONS NOTED. VSS. NITRO PATCH REMOVED ORDERED. IV FLUIDS CONTINUE TO INFUSE AT 100 CC/HR. NO DISTRESS.
--- NOTE | 2018-06-27 22:30 | NUR ---
PROVIDED WITH HONEY THICKENED LIQUIDS AT THIS TIME. PT. TOOK 240 ML WITHOUT DIFFICULTY. DAUGHTER CALLED THIS RN BACK AND WAS UPDATED ON HIS CURRENT CONDITION AND SHE STATES THAT HER SISTER HAS HIS WATCH THAT THE PATIENT WAS WORRIED WAS MISSING.
--- NOTE | 2018-06-27 22:45 | NUR ---
PT. C/O BILATERAL FOOT PAIN, HAS HX OF NEUROPATHY. MD CALLED AND NEW ORDERS RECEIVED. WILL MEDICATE ORDERED.
--- NOTE | 2018-06-27 23:35 | NUR ---
PT. MEDICATED PER PHYSICIAN ORDERS. PROVIDED WITH MORE WATER PER HIS REQUEST. DENIES OTHER COMPLAINTS OR NEED. REPOSITIONED FOR COMFORT. REMAINS STABLE. INTERMITTENT WITHOUT SPUTUM PRODUCTION. SPO2 REMAINS STABLE ON 2L NC.
[2018-06-28] VITALS (12 sets, daily range): BP systolic 107–179; BP diastolic 54–86
--- NOTE | 2018-06-28 00:28 | NUR ---
NEB TREATMENT IN PROGRESS. NO DISTRESS. SPO2 IS 98% ON 2L NC. REMAINS SINUS/SINUS TACH. RESPS EVEN AND UNLABORED. REMAINS AFEBRILE.
--- NOTE | 2018-06-28 01:39 | NUR ---
PT. RESTING WITH EYES CLOSED IN NO DISTRESS. RESPS EVEN AND UNLABORED. VSS. REMAINS SINUS ON THE MONITOR.
--- NOTE | 2018-06-28 03:30 | NUR ---
PT. RESTING IN BED WITH EYES CLOSED. RESPS REMAIN EVEN AND UNLABORED. PT. REMAINS ON 2L NC. NO DISTRESS. VOICES NO COMPLAINTS OR NEEDS. CALL LIGHT REMAINS WITHIN REACH. WILL CONTINUE TO ASSESS.
--- NOTE | 2018-06-28 04:20 | NUR ---
NEB TREATMENT IN PROGRESS AT THIS TIME. PT. REMAINS STABLE. VOICES NO COMPLAINTS OR NEEDS. CALL LIGHT REMAINS WITHIN REACH. IV FLUIDS CONTINUE TO INFUSE WITHOUT SX OF INFILTRATION OR EXTRAVASATION. NO DISTRESS.
--- NOTE | 2018-06-28 06:08 | NUR ---
PT. RESTING IN BED IN NO DISTRESS. CALL LIGHT REMAINS WITHIN REACH. INTERMITTENT MOIST COUGH NOTED, BUT NO SPUTUM PRODUCTION. VSS. WILL CONTINUE TO MONITOR.
--- NOTE | 2018-06-28 07:12 | NUR ---
pt noted yelling out; in to assess pt; pt awake; offers no complaints; no distress noted; pt requesting this web content writer answer that phone, referring to monitor alarms; pt alert to person and place; denies pain; no n/v noted; resp slightly tachypneic; lungs clear right wright, coarse with faint exp wheezing to left wright; deputy fire chief moist cough noted; skin color wnl; o2 per nc at 2l; hr reg; weak pedal pulses; trace edema noted; bilat dyllan hose intact; abd soft with bs present; small bm noted per web content writer; pericare per staff; condom catheter intact with clear yellow urine noted; #20 in rw patent with ivf infusing without complication; no redness or edema noted at site; feet floated off bed; repositioned; bed in lowest position; call light within reach; will continue to monitor closely
--- NOTE | 2018-06-28 08:00 | NUR ---
awake in bed; expert medical writer at bedside for feed; iv patent; no redness or edema noted at site; o2 per nc; st/pvc on monitor; call light within reach; will continue to monitor
--- NOTE | 2018-06-28 08:30 | NUR ---
Dr Steele present at bedside to assess pt and discuss plan of care; solumedrol and ativan order reviewed; IVF decreased to 50cc/hr as per MD verbal order; will continue to monitor
--- NOTE | 2018-06-28 10:05 | NUR ---
resting in bed with eyes closed; no distress noted; resp even and unlabored; st/pvc 102 on monitor; freq yelling out of "hello" noted; iv patent; no redness or edema noted at site; pérez bag to gravity; o2 per nc; call light within reach; will continue to monitor
--- NOTE | 2018-06-28 12:10 | NUR ---
awake in bed; continues with frequent yelling out; denies needs when staff present in room; pt has removed condom catheter; iv patent; no redness or edema noted at site; o2 per nc; st/pvc on monitor; increased wheezig noted; fed by this engineering writer and tolerated meal well; repositioned; will continue to monitor closely
--- NOTE | 2018-06-28 13:15 | NUR ---
complete bed bath; repositioned; oral care with toothette; feet floated; condom catheter intact; will continue to monitor
--- NOTE | 2018-06-28 14:11 | NUR ---
resting with eyes closed; no distress noted; sr on monitor; will continue to monitor
--- NOTE | 2018-06-28 14:50 | NUR ---
bri Judi called this radio script writer; passcode provided; update given
--- NOTE | 2018-06-28 16:25 | NUR ---
resting in bed with eyes closed; easily aroused; offers no complaints; no distress noted; resp even and unlabored; iv patent; no redness or edema noted at site; pérez to gravity; o2 per nc; sr on monitor; accucheck 279; repositioned; call light within reach; will continue to monitor
--- NOTE | 2018-06-28 17:00 | NUR ---
up to recliner x2 max for dinner; will continue to monitor
--- NOTE | 2018-06-28 18:12 | NUR ---
awake; remains up to recliner; no distress; resp even and unlabored; pérez to gravity; iv patent; fluids infusing without complication; no redness or edema noted at site; increased visual observation for pt safety;
--- NOTE | 2018-06-28 19:30 | NUR ---
[facility] YELLING OUT HELLO. PT STATES THAT HE HQAS A HORSE ON HIM. PT HOWEVER ALERT AND ORIENTED X3. REMINDED PT THAT HE IS IN THE HOSPITAL AND THERE IS NO HORSE ON HIM. PT REQUESTED A DRINK OF WATER. PT PROVIDED A DRINK OF THICKENED WATER. PT TOLERATED WELL. SHIFT ASSESSMENT COMPLETED AT THIS TIME. IV PATENT X1. PLAN OF CARE REVIEWED WITH PT. CALL LIGHT IN REACH. WILL CONTINUE TO MONITOR
--- NOTE | 2018-06-28 21:30 | NUR ---
PT MEDICATED WITH EVENING MEDS PER JAN. CALL LIGHT IN REACH. INSTRUCTED PT OF HOW TO USE CALL LIGHT. WILL CONTINUE TO MONITOR
--- NOTE | 2018-06-28 22:58 | NUR ---
PT CONSISTENTLY LOCAL TANKER TRUCK DRIVER LIGHT EVERY 5-10 MINUTES. PT CONTINUOUSLY QUESTIONING SLEEPING AND PAIN PILL. REMINDED PATIENT THAT HE WAS MEDICATED FOR PAIN AND SLEEP AT 2100 MED PASS. INSTRUCTED PT TO CALL WHEN HE NEEDS SOMETHING. CALL LIGHT IN REACH. WILL CONTINUE TO MONITOR
--- NOTE | 2018-06-28 23:37 | NUR ---
PT RESTING IN BED. RESP ARE EVEN AND UNLABORED. NO DISTRESS NOTED. CALL LIGHT IN REACH. WILL CONTINUE TO MONITOR
[2018-06-29] VITALS (12 sets, daily range): BP systolic 118–182; BP diastolic 68–83
--- NOTE | 2018-06-29 02:01 | NUR ---
PT RESTING IN BED WITH EYES CLOSED. RESP ARE EVEN AND UNLABORED. NO DISTRESS NOTED. PT REMAINS SR TO ST ON MONITOR 90S-100S. CALL LIGHT IN REACH. WILL CONTINUE TO MONITOR
--- NOTE | 2018-06-29 04:00 | NUR ---
LAB INTO DRAW AM LABS. PT TOLERATED WELL. PARTIAL LINEN CHANGE COMPLETED FOR SMALL INCONTINENT BM. PT CLEANSED WELL. PT TOLERATED WELL. WILL CONTINUE TO MONITOR
[2018-06-29 05:07] LABS: BASO% 0 % (0-3); EOS% 0 % (0-8); HEMOGLOBIN 8.9 g/dl (14.0-18.0); LYMPH% 3 % (15-41); MEAN CELL VOLUME 91.8 fL CALC (80.0-100.0); MEAN CORPUSCULAR HGB 29.2 pG CALC (26.0-32.0); MEAN CORPUSCULAR HGB CONC 31.8 g/L CALC (32.0-36.0); MONO% 3 % (2-13); NEUT# 12.59 thou/uL (1.82-7.42); PLATELET COUNT 377 thou/uL (130-400); RED BLOOD COUNT 3.05 mill/uL (4.70-6.10)
[2018-06-29 05:16] LABS: ALBUMIN 3.4 g/dL (3.2-5.0); ALKALINE PHOSPHATASE 120 u/l (38-126); ANION GAP 15 (6-22 (CALC)); BILIRUBIN, TOTAL 0.2 mg/dL (0.0-1.4); BUN 31 mg/dL (8-23); BUN/CREATININE RATIO 27 (12-20 (CALC)); CARBON DIOXIDE 27 mmol/l (22-30); CHLORIDE 111 mmol/l (95-108); CREATININE 1.2 mg/dL (0.7-1.3); GFR 58 ML/MIN (>=60 (CALC)); GFR FOR AFR.AMER. > 60 ML/MIN (>=60 (CALC)); SGOT/AST 22 u/l (19-48); SGPT/ALT 31 u/l (11-66); SODIUM 150 mmol/l (137-146); TOTAL PROTEIN 7.7 g/dL (6.3-8.2)
[2018-06-29 05:21] LABS: POTASSIUM 3.4 mmol/l (3.5-5.1)
[2018-06-29 05:56] LABS: IMMATURE GRANULOCYTES 8.3 % (0.0-5.0); NEUT% 100 % (42-76)
[2018-06-29 05:57] LABS: MANUAL DIFFERENTIAL YES
--- NOTE | 2018-06-29 06:03 | NUR ---
PT RESTIN BED. AWAKE. RESP ARE EVEN AND UNLABORED. NO DISTRESS NOTED. CALL LIGHT IN REACH. WILL CONTINUE TO MONITOR
--- NOTE | 2018-06-29 07:35 | NUR ---
pt awake in bed; no distress noted; pt offers no complaints; assessment completed at this time; pt alert to person, place and current month; denies pain; no n/v noted; resp even and unlabored; lungs clear/diminished bases; skin color wnl; o2 per nc; loose rifle case repairer cough noted; hr reg; weak pedal pulses; trace edema noted to ble; st on monitor; bilat dyllan hose intact; abd soft/ distended with bs present; no bm noted per marketing underwriter; condom catheter intact draining clear yellow urine to drainage bag; #20 in rw patent with ivf infusing without complication; no redness or edema noted at site; pt able to reposition self on command; able to follow verbal commands; plan of care/am meds explained; call light within reach; will continue to monitor
--- NOTE | 2018-06-29 07:52 | NUR ---
xray at bedside for portabe chest xray
--- NOTE | 2018-06-29 08:10 | NUR ---
awake in high fowlers position; no distress noted; resp even and unlabored; iv patent; no redness or edema noted at site; st on monitor; call light within reach; will continue to monitor
--- NOTE | 2018-06-29 09:00 | NUR ---
Dr Steele present at bedside to assess pt and discuss plan of care; pt max assist/lift x2 staff to recliner; will continue to monitor
--- NOTE | 2018-06-29 10:04 | NUR ---
awake in recliner; no distress noted; frequent yelling out for "phone" noted; reoriented; pt able to recite daughter phone number; daughter Virginie called as per pt request; no answer; message left per pt; iv patent; no redness or edema noted at site; st on monitor; o2 per nc; increased visual observation for pt safety; will continue to monitor
--- NOTE | 2018-06-29 12:10 | NUR ---
awake in recliner; no distress noted; resp even and unlabored; lungs with exp wheezing; o2 per nc; iv patent; no redness or edema noted at site; st/ pvc on monitor; increased visual observation for safety; will continue to monitor
--- NOTE | 2018-06-29 12:30 | NUR ---
daughter Judi called the unit; passcode verified; update given; portable phone provided to daughter to speak with pt; will continue to monitor
--- NOTE | 2018-06-29 13:15 | NUR ---
pt construction consultant light frequenly; readjusted in recliner; po fluids provided; will continue to monitor
--- NOTE | 2018-06-29 13:59 | NUR ---
awake; remains up to recliner; no distress noted; resp even and unlabored; iv patent; no redness or edema noted at site; st/pvc on monitor; pérez to gravity; call light within reach; will continue to monitor
--- NOTE | 2018-06-29 15:57 | NUR ---
resting in bed with eyes closed; no distress noted; resp even and unlabored; iv patent; no redness or edema noted at site; st/pvc on monitor; o2 per nc; pérez to gravity; call light within reach; will continue to monitor
--- NOTE | 2018-06-29 17:58 | NUR ---
awake in bed; no distress noted; pt offers no complaints; iv patent; no redness or edema noted at site; st/pvcs on monitor; o2 per nc; condom catheter replaced; repositioned per staff; pt fed and tolerated 100% of meal; grand- daughter at bedside; bed in lowest position; side rails elevated; call light within reach
--- NOTE | 2018-06-29 19:32 | NUR ---
PT RESTING IN BED. VISITORS IN ROOM. PT IS ALERT AND ORIENTED X3. SHIFT ASSESSMENT COMPLETED AT THIS TIME. IV PATENT X1. PLAN OF CARE REVIEWED WITH PATIENT. CALL LIGHT IN REACH. WILL CONTINUE TO MONITOR
--- NOTE | 2018-06-29 21:24 | NUR ---
PT RESTING IN BED WITH EYES CLOSED. PT MEDICATED WITH PM MEDS PER JAN. CALL LIGHT IN REACH. WILL CONTINUE TO MONITOR
--- NOTE | 2018-06-29 23:32 | NUR ---
PT RESTING IN BED WITH EYES CLOSED. RESP ARE EVEN AND UNLABORED. NO DISTRESS NOTED. CALL LIGHT IN REACH. WILL CONTINUE TO MONITOR
[2018-06-30] VITALS (12 sets, daily range): BP systolic 136–175; BP diastolic 70–90
--- NOTE | 2018-06-30 02:00 | NUR ---
PT RESTING IN BED WITH EYES CLOSED. RESP ARE EVEN AND UNLABORED. NO DISTRESS NOTED. CALL LIGHT IN REACH. WILL CONTINUE TO MONITOR
--- NOTE | 2018-06-30 04:02 | NUR ---
LAB INTO ROOM TO DRAW AM LABS. CALL LIGHT IN REACH. WILL CONTINUE TO MONITOR
[2018-06-30 04:21] LABS: BASO% 0 % (0-3); EOS% 0 % (0-8); HEMATOCRIT 28.6 % (39.0-50.0); HEMOGLOBIN 9.2 g/dl (14.0-18.0); LYMPH% 5 % (15-41); MEAN CELL VOLUME 90.8 fL CALC (80.0-100.0); MEAN CORPUSCULAR HGB 29.2 pG CALC (26.0-32.0); MEAN CORPUSCULAR HGB CONC 32.2 g/L CALC (32.0-36.0); MONO% 3 % (2-13); NEUT# 11.03 thou/uL (1.82-7.42); PLATELET COUNT 395 thou/uL (130-400); RED BLOOD COUNT 3.15 mill/uL (4.70-6.10); RED CELL DISTRI WIDTH 12.9 % (11.5-15.5)
[2018-06-30 04:33] LABS: ANION GAP 14 (6-22 (CALC)); BUN 24 mg/dL (8-23); BUN/CREATININE RATIO 23 (12-20 (CALC)); CARBON DIOXIDE 30 mmol/l (22-30); CHLORIDE 107 mmol/l (95-108); GFR > 60 ML/MIN (>=60 (CALC)); GFR FOR AFR.AMER. > 60 ML/MIN (>=60 (CALC)); POTASSIUM 3.3 mmol/l (3.5-5.1); SODIUM 147 mmol/l (137-146)
[2018-06-30 05:11] LABS: IMMATURE GRANULOCYTES 7.9 % (0.0-5.0); NEUT% 100 % (42-76)
[2018-06-30 05:12] LABS: MANUAL DIFFERENTIAL YES
--- NOTE | 2018-06-30 05:43 | NUR ---
PT RECEIVING AM NEB TREATMENT. CALL LIGHT IN REACH. WILL CONTINUE TO MONITOR
--- NOTE | 2018-06-30 07:50 | NUR ---
WOOD TECHNOLOGIST AT BEDSIDE ASSISTING PT WITH EATING, PT TOELRATING WELL
--- NOTE | 2018-06-30 08:08 | NUR ---
DR HERNANDEZ AT BEDSIDE DISCUSSING PLAN OF CARE AND DISCHARGE PLAN
--- NOTE | 2018-06-30 10:03 | NUR ---
PT LAYING IN BED RESTING WITH EYES CLOSED, AROUSES EASILY TO VERBAL STIMULI, REMINDED TO CALL FOR ASSISTANCE, CALL HARRIS WITHIN REACH
--- NOTE | 2018-06-30 11:30 | NUR ---
SETUP ASSISTANCE PROVIDED WITH LUNCH TRAY
--- NOTE | 2018-06-30 12:15 | NUR ---
PT ASSISTED WITH REPOSITIONING FOR COMFORT, PT TOLERATED WELL, REMINDED TO CALL FOR ASSISTANCE, CALL HARRIS WITHIN REACH
--- NOTE | 2018-06-30 14:00 | NUR ---
PT RESTING WITH EYES CLOSED, AROUSES EASILY TO VERBAL STIMULI, CALL HARRIS WITHIN REACH
--- NOTE | 2018-06-30 16:20 | NUR ---
PT ASSISTED WITH REPOSITIONING FOR COMFORT, PT TOLERATED WELL, CALL HARRIS WITHIN REACH
--- NOTE | 2018-06-30 17:05 | NUR ---
PT ASSISTED WITH GETTING WASHED UP, PT ASSISTED WITH MAX ASSISTANCE TO THE RECLINER, PT TOLERATED WELL, PT REMINDED TO CALL FOR ASSISTANCE, CALL HARRIS WITHIN REACH
--- NOTE | 2018-06-30 18:50 | NUR ---
REPORT FROM Lady BRIGGS LPN. ASSUMED PT. CARE.
--- NOTE | 2018-06-30 19:30 | NUR ---
PT. DONE WITH DINNER MEAL AT THIS TIME. PT. ATE APPROX 50% OF DINNER. DENIES COMPLAINTS OF PAIN OR NEED AT THIS TIME. REQUESTING HIS EYE DROPS. WILL MEDICATE ORDERED. CALL HARRIS REMAINS WITHIN REACH. SITTING IN CHAIR AT BEDSIDE AT THIS TIME.
--- NOTE | 2018-06-30 20:09 | NUR ---
EYE DROPS GIVEN A LITTLE EARLY PER PATIENT REQUEST. IV ZITHROMAX INFUSING WITHOUT SX OF INFILTRATION OR REACTION.
--- NOTE | 2018-06-30 21:00 | NUR ---
PT. OFFERED BEDSIDE COMMODE AT THIS TIME. STATES HE ONLY HAS GAS AND WILL DOES NOT NEED TO HAVE A BOWEL MOVEMENT. ASSISTED BACK TO BED AT THIS TIME. PERICARE GIVEN AND CONDOM CATH CHANGED AT THIS TIME. WILL CONTINUE TO CLOSELY MONITOR.
--- NOTE | 2018-06-30 21:35 | NUR ---
RT AT BEDSIDE TO ADMINISTER NEB TREATMENT.
--- NOTE | 2018-06-30 22:50 | NUR ---
PT. WITH APPROX 200 CC GREEN EMESIS AT THIS TIME. WILL MEDICATE PER PHYSICIAN ORDERS.
--- NOTE | 2018-06-30 23:17 | NUR ---
NO EMESIS AT THIS TIME. ZOFRAN INFUSED. CALL LIGHT REMAINS WITHIN REACH. ENCOURAGED TO CALL FOR ANY ISSUE.
[2018-07-01] VITALS (10 sets, daily range): BP systolic 125–158; BP diastolic 71–86
--- NOTE | 2018-07-01 00:39 | NUR ---
NO EMESIS AT THIS TIME. PT. REMAINS STABLE ON THE MONITOR. CALL LIGHT REMAINS WITHIN REACH. NO ADDITIONAL EMESIS NOTED SINCE MEDICATED WITH ZOFRAN. RESTING WITH EYES CLOSED. WILL CONTINUE TO CLOSELY MONITOR.
--- NOTE | 2018-07-01 02:25 | NUR ---
PT. RESTING IN BED WITH EYES CLOSED. SKIN REMAINS WARM AND DRY. RESPS EVEN AND UNLABORED. IV FLUIDS CONTINUE TO INFUSE AT 50 CC/HR. DENIES COMPLAINTS OF PAIN OR NEED. WILL CONTINUE TO MONITOR.
--- NOTE | 2018-07-01 04:05 | NUR ---
PT. REMAINS STABLE. STATING HE NEEDS TO URINATE. REORIENTED TO SITUATION. INFORMED HE HAS A CONDOM CATH AT THIS TIME AND HE CAN URINATE. REMAINS WITH EMESIS BAG AT HAND FOR NAUSEA. DENIES OTHER COMPLAINTS OF PAIN OR NEEDS.
--- NOTE | 2018-07-01 06:03 | NUR ---
LAB AT BEDSIDE TO DRAW PT. PT. REMAINS EASILY AROUSABLE AND ABLE TO MAKE NEEDS KNOWN. REMAINS TACHYCARDIC, OTHER VS STABLE. CALL LIGHT REMAINS WITHIN REACH. IV FLUIDS CONTINUE TO INFUSE AT 50 CC/HR. CONDOM CATH REMAINS IN PLACE. REMAINS AFEBRILE. WILL CONTINUE TO MONITOR.
[2018-07-01 06:21] LABS: BASO% 0 % (0-3); EOS% 0 % (0-8); HEMATOCRIT 29.6 % (39.0-50.0); HEMOGLOBIN 9.3 g/dl (14.0-18.0); LYMPH% 6 % (15-41); MEAN CELL VOLUME 91.1 fL CALC (80.0-100.0); MEAN CORPUSCULAR HGB 28.6 pG CALC (26.0-32.0); MEAN CORPUSCULAR HGB CONC 31.4 g/L CALC (32.0-36.0); MONO% 2 % (2-13); NEUT# 12.78 thou/uL (1.82-7.42); PLATELET COUNT 418 thou/uL (130-400); RED BLOOD COUNT 3.25 mill/uL (4.70-6.10); RED CELL DISTRI WIDTH 12.9 % (11.5-15.5)
[2018-07-01 06:25] LABS: IMMATURE GRANULOCYTES 7.5 % (0.0-5.0); NEUT% 100 % (42-76)
[2018-07-01 06:26] LABS: MANUAL DIFFERENTIAL YES
[2018-07-01 06:33] LABS: ALBUMIN 3.3 g/dL (3.2-5.0); ALKALINE PHOSPHATASE 99 u/l (38-126); ANION GAP 16 (6-22 (CALC)); BILIRUBIN, TOTAL 0.3 mg/dL (0.0-1.4); BUN 22 mg/dL (8-23); BUN/CREATININE RATIO 22 (12-20 (CALC)); CARBON DIOXIDE 29 mmol/l (22-30); CHLORIDE 103 mmol/l (95-108); GFR > 60 ML/MIN (>=60 (CALC)); GFR FOR AFR.AMER. > 60 ML/MIN (>=60 (CALC)); SGOT/AST 18 u/l (19-48); SGPT/ALT 28 u/l (11-66); SODIUM 144 mmol/l (137-146); TOTAL PROTEIN 7.5 g/dL (6.3-8.2)
[2018-07-01 06:36] LABS: POTASSIUM 4.2 mmol/l (3.5-5.1)
[2018-07-01 06:45] LABS: BAND 1 % (0-8)
--- NOTE | 2018-07-01 07:15 | NUR ---
PT LAYING IN BED RESTING WITH EYES CLOSED, AROUSES EASILY TO VERBAL STIMULI, PT A & O X2, PERRL, HR 110, RESP. 22, BP 138/73, O2 99% ON 2L VIA NC, LUNG SOUNDS CLEAR IN THE UPPER LOBES & DIMINISHED IN THE BASES, STRONG RADIAL PULSES, WEAK PEDAL PULSES, AM ASSESSMENT COMPLETE, SEE INTERVENTIONS, SAFETY MEASURES REINFORCED, CALL HARRIS WITHIN REACH
--- NOTE | 2018-07-01 07:30 | NUR ---
SETUP ASSISTANCE PROVIDED WITH JESSICA GUAMAN
--- NOTE | 2018-07-01 08:00 | NUR ---
DR HERNANDEZ AT BEDSIDE DISCUSSING PLAN OF CARE
--- NOTE | 2018-07-01 10:20 | NUR ---
PT LAYING IN BED RESTING WITH EYES CLOSED, AROUSES, EASILY TO VERBAL STIMULI, CALL HARRIS WITHIN REACH
--- NOTE | 2018-07-01 12:00 | NUR ---
REPORT RECEIVED FROM SEFERINO IN ICU, PT ARRIVED ON UNIT @ 1152 IN BED AND SETTLED IN ROOM, ORIENTED TO PLACE, PERSON AND MONTH. CONDOM CATHETER IN PLACE WITH URINE BAG TO GRAVITY, URINE CLEAR PALE YELLOW. ORINETED TO ROOM AND CALL HARRIS, DENIED PAIN, WILL CONTINUE TO MONITOR AND ADDRESS NEEDS.
--- NOTE | 2018-07-01 19:30 | NUR ---
PT RESTING IN BED WITH EYES CLOSED BUT AWAKE. PT IS ALERT AND ORIENTED X3. SHIFT ASSESSMENT COMPLETED AT THIS TIME. IV PATENT X1. PLAN OF CARE REVIEWED WITH PT. CALL JUAN FIERRO WILL CONTINUE TO MONTIOR
--- NOTE | 2018-07-02 | NUR ---
PT RESTING IN BED WITH EYES CLOSED. RESP ARE EVEN AND UNLABORED. NO DISTRESS NOTED. CALL LIGHT IN REACH. WILL CONTINUE TO MONITOR
--- NOTE | 2018-07-02 04:09 | NUR ---
PT RESTING IN BED WITH EYES CLOSED. RESP ARE EVEN AND UNLABORED. NO DISTRESS NOTED. CALL LIGHT IN REACH. WILL CONTINUE TO MONITOR
--- NOTE | 2018-07-02 04:30 | NUR ---
LAB INTO DRAW AM LABS
[2018-07-02 04:45] VITALS: BP 138/74
[2018-07-02 05:08] LABS: HEMATOCRIT 29.9 % (39.0-50.0); HEMOGLOBIN 9.6 g/dl (14.0-18.0); IMMATURE GRANULOCYTES 5.7 % (0.0-5.0); MEAN CELL VOLUME 90.9 fL CALC (80.0-100.0); MEAN CORPUSCULAR HGB 29.2 pG CALC (26.0-32.0); MEAN CORPUSCULAR HGB CONC 32.1 g/L CALC (32.0-36.0); PLATELET COUNT 418 thou/uL (130-400); RED BLOOD COUNT 3.29 mill/uL (4.70-6.10)
--- NOTE | 2018-07-02 05:24 | NUR ---
RADIOLOGY INTO COMPLETE AM CXR
[2018-07-02 05:27] LABS: ANION GAP 12 (6-22 (CALC)); BUN 21 mg/dL (8-23); BUN/CREATININE RATIO 19 (12-20 (CALC)); CARBON DIOXIDE 30 mmol/l (22-30); CHLORIDE 102 mmol/l (95-108); CREATININE 1.1 mg/dL (0.7-1.3); GFR > 60 ML/MIN (>=60 (CALC)); GFR FOR AFR.AMER. > 60 ML/MIN (>=60 (CALC)); POTASSIUM 3.8 mmol/l (3.5-5.1); SODIUM 141 mmol/l (137-146)
[2018-07-02 05:43] LABS: MANUAL DIFFERENTIAL YES
[2018-07-02] MEDS ORDERED: METOPROL TAR100 MG PO (08:07)
[2018-07-02 08:20] VITALS: BP 148/97
--- NOTE | 2018-07-02 08:20 | NUR ---
ASSESSMENT IS COMPLETED: IV SITE IS FREE FROM REDNESS OR EDEMA. HR IS REG, PULSES ARE STRONG X4, ABD IS SOFT WITH ACTIVE BS. BREATH SOUNDS ARE CLEAR, BILATERALLY. NO C/O SOB,CONTINUE TO OSBERVE AND MONITOR.
[2018-07-02 10:00] VITALS: BP 138/74
--- NOTE | 2018-07-02 13:00 | NUR ---
IV SITE DISCONTINUED CATHETER INTACT ABLE TO BE TRANSFERRED TO THE WITH 2 PERSON ASSIST. DISCHARGE PACKET SENT WITH STAFF MEMBER.
--- NOTE | 2018-07-02 13:39 | NUR ---
CALLED REPORT TO HALIMA CESAR , PT HAD ALREADY ARRIVED. Discharge instructions given. Patient verbalizes understanding of same. Discharged in stable condition via Wheelchair to [facility] with *Other. All belongings sent with pt.
== END 2018-07-02 13:26 | DRG 194 ==
LOC: ED 12:11 → ED-I 15:00 → ED 15:40 → MS2 15:41 → ICU 15:41 → ED 15:41 → ICU 15:41 → MS2 07-01 11:45 → ICU 07-01 11:45 → MS2 07-01 11:45
PROVIDERS: Emergency Medicine; ADMIT Internal Medicine Geriatric Medicine; ATTEND Internal Medicine Geriatric Medicine
PROC: 5A09357 Assistance with Respiratory Ventilation, Less than 24 Consecutive Hours, Continuous Positive Airway Pressure (ICD-10-PCS; principal; 2018-06-26)
DX: J18.9 Pneumonia, unspecified organism (principal); J44.0 Chronic obstructive pulmonary disease with (acute) lower respiratory infection; H40.9 Unspecified glaucoma; I48.2 Chronic atrial fibrillation; I25.10 Atherosclerotic heart disease of native coronary artery without angina pectoris; R09.02 Hypoxemia; F03.90 Unspecified dementia, unspecified severity, without behavioral disturbance, psychotic disturbance, mood disturbance, and anxiety; K27.9 Peptic ulcer, site unspecified, unspecified as acute or chronic, without hemorrhage or perforation; E11.22 Type 2 diabetes mellitus with diabetic chronic kidney disease; I12.9 Hypertensive chronic kidney disease with stage 1 through stage 4 chronic kidney disease, or unspecified chronic kidney disease; N18.9 Chronic kidney disease, unspecified; G89.29 Other chronic pain; M54.5 Low back pain; M19.90 Unspecified osteoarthritis, unspecified site; E11.42 Type 2 diabetes mellitus with diabetic polyneuropathy; H54.7 Unspecified visual loss; D63.8 Anemia in other chronic diseases classified elsewhere; Z21 Asymptomatic human immunodeficiency virus [HIV] infection status; Z99.81 Dependence on supplemental oxygen; Z79.4 Long term (current) use of insulin; Z85.9 Personal history of malignant neoplasm, unspecified
CPT/HCPCS: J2060; S0164